=== PATIENT | male | born 1965 | race Two or more races ===

== ENCOUNTER 2024-11-17 08:00 | Outpatient (RCR) | payer MEDICAID, SELFPAY ==
--- NOTE | 2024-11-03 08:43 | PTNOTE_ITS ---
PT OP Initial Eval Patient Information Outpatient Physical Therapy Treatment Date: 11/03/24 Visit Reasons: PAIN IN RT SHOULDER Medical Diagnosis: M25.579 Treatment Dx #1: R shoulder pain Start of Care: 11/03/24 Date of Onset: 6 months ago Smoking Status Smoking Status: Never smoker Initial Assessment Subjective: Pt is 59 yr old omani speaking male who fell and reached to not fall and R twisted the shoulder and felt pain. Increased pain with reaching, lifting and when he wakes up in the morning. He does required tasks with pain. He received a pain injection in [place] about 3 weeks ago which has helped the pain. PMH: none Imaging: Xrays mild OA Pt goal: to get rid of the pain Objective: R shoulder AROM: ? FF: full ? Abd: 150 deg ? ER: 85 deg ? HBB: to L5 ? Strength: 4/5 in all planes ?Klaudia Pemberton: negative Kennedy's: negative Drop arm: negative Assessment: Pt presents with good strength and ROM of R shoulder with low pain level. He is likely still feeling the pain relief from the injection he got in [place]. Pt would benefit from skilled therapy in order to meet goals and has fair/good rehab potential. Short Term and Care Home Goals 1. Ind with HEP 2. Decreased pain in the morning by 50% 3. Pt will tolerate work duties with <=2/10 R shoulder pain Treatment Plan 1. Manual therapy ? 2. Therex ? 3. Modalities as indicated, moist heat pack, ice, electrical stimulation, Frequency and Duration: 1-2x a week for 6 visits plus evaluation Certification Dates: 11/03/24 to 01/30/25 Procedure Charges OP PT Eval Mod Complex 30 minutes: Yes
--- NOTE | 2024-11-17 08:32 | PT.ODAYNRPT ---
PT Outpatient Daily Note OP Daily Note Outpatient Physical Therapy Treatment Date: 11/17/24 Visit Reasons: PAIN IN RT SHOULDER Subjective: Same as time of evaluation Objective: See F/S for therex MHP: x7' Assessment: Low tissue irritability with therex and AAROM Plan: Continue per POC Length of Time (minutes) of Treatment: 30 Minutes Procedure Charges Therapeutic Exercise 30 minutes: Yes
== END 2024-11-21 23:59 | disposition home or self-care (01) ==
LOC: CPTX 08:00
PROVIDERS: PCP Physician Assistant; Referring Provider Physician Assistant; Visit Provider Physician Assistant
DX: M25.511 Pain in right shoulder (principal)
CPT/HCPCS: 97110; 97162

== ENCOUNTER 2024-12-01 08:30 | Outpatient (RCR) | payer MEDICAID, SELFPAY ==
--- NOTE | 2024-11-24 08:38 | PT.ODAYNRPT ---
PT Outpatient Daily Note OP Daily Note Outpatient Physical Therapy Treatment Date: 11/24/24 Visit Reasons: Pain in RT shoulder Subjective: Pt arrived 15 mins late to rx, shoulder is about the same as last time Objective: See F/S for therex Assessment: Pt has low tissue irritability in the clinic with resistive therex Plan: Continue per POC Length of Time (minutes) of Treatment: 15 Minutes Procedure Charges Therapeutic Exercise 15 minutes: Yes
--- NOTE | 2024-12-01 09:41 | PT.ODAYNRPT ---
PT Outpatient Daily Note OP Daily Note Outpatient Physical Therapy Treatment Date: 12/01/24 Visit Reasons: Pain in RT shoulder Subjective: Pt says his houlder is a little less painful at night since last time Objective: See F/S for therex Assessment: Pt has low tissue irritability in the clinic with resistive therex Plan: Continue per POC Length of Time (minutes) of Treatment: 25 Minutes Procedure Charges Therapeutic Exercise 30 minutes: Yes
== END 2024-12-22 23:59 | disposition home or self-care (01) ==
LOC: CPTX 08:30
PROVIDERS: PCP Physician Assistant; Referring Provider Physician Assistant; Visit Provider Physician Assistant
DX: M25.511 Pain in right shoulder (principal)
CPT/HCPCS: 97110